=== PATIENT | female | born 1940 | race Caucasian/White ===

== ENCOUNTER 2019-01-30 09:52 | Emergency (ER) | payer OTHER ==
[~2019-01-30] VITALS: Ht 142.2 cm; Wt 63.5 kg
[~2019-01-30 09:52] MED LIST: ADULT LOW DOSE81 M1; ALENDRONATE SOD70 MG; BENAZEPRIL HCL; BUMETANIDE0.5 MG; GLIMEPIRIDE4 MG; JANUMET 50-1,1 UDTAB; SIMVASTATIN40 MG; SYNTHROID100 MCG; VITAMIN D2000 UNI1
[2019-01-30] MEDS ORDERED: LOTREL 5-10 MG1 CAP (10:18)
[2019-01-30] MEDS ORDERED: ZOCOR40 MG (10:18)
== END 2019-01-30 15:19 | disposition home or self-care (01) ==
LOC: ER 09:52
DX: K29.70 Gastritis, unspecified, without bleeding (principal); N39.0 Urinary tract infection, site not specified

== ENCOUNTER 2020-02-26 10:52 | Emergency (ER) | payer OTHER ==
[~2020-02-26] VITALS: Ht 149.9 cm; Wt 62.6 kg
[~2020-02-26 10:52] MED LIST changes: +LOTREL 5-10 MG1 CAP; +ZOCOR40 MG
[2020-02-26] MEDS ORDERED: NEURONTIN600 M1 PO (11:04)
[2020-02-26] MEDS ORDERED: JANUMET XR 1001 EACH PO (11:04)
[2020-02-26] MEDS ORDERED: GLIMEPIRIDE4 MG (11:05)
[2020-02-26] MEDS ORDERED: ZOCOR40 MG PO (11:05)
[2020-02-26] MEDS ORDERED: CRESTOR20 MG PO (11:05)
[2020-02-26] MEDS ORDERED: LOTREL 5-10 MG1 CAP PO (11:05)
[2020-02-26] MEDS ORDERED: SYNTHROID75 MCG (11:05)
[2020-02-26] MEDS ORDERED: BUMETANIDE0.5 MG (11:06)
[2020-02-26] MEDS ORDERED: PREVACID30 MG PO (16:11)
[2020-02-26] MEDS ORDERED: PEPCID AC20 MG PO (16:11)
== END 2020-02-26 16:54 | disposition home or self-care (01) ==
LOC: ER 10:52
DX: K29.70 Gastritis, unspecified, without bleeding (principal); R10.13 Epigastric pain

== ENCOUNTER 2021-07-19 00:24 | Emergency (ER) | payer OTHER ==
[~2021-07-19] VITALS: Ht 149.9 cm; Wt 60.3 kg
[~2021-07-19 00:24] MED LIST changes: +CRESTOR20 MG PO; +JANUMET XR 1001 EACH PO; +LOTREL 5-10 MG1 CAP PO; +NEURONTIN600 M1 PO; +PEPCID AC20 MG PO; +PREVACID30 MG PO; +SYNTHROID75 MCG; +ZOCOR40 MG PO
[2021-07-19] MEDS ORDERED: ACARBOSE25 MG PO (00:39)
[2021-07-19] MEDS ORDERED: NAMENDA5 MG PO (01:47)
[2021-07-19] MEDS ORDERED: BENADRYL25 MG PO (07:30)
[2021-07-19] MEDS ORDERED: CEPHALEXIN500 MG PO (07:30)
== END 2021-07-19 08:03 ==
LOC: ER 00:24
DX: R25.1 Tremor, unspecified (principal); N39.0 Urinary tract infection, site not specified; Z86.39 Personal history of other endocrine, nutritional and metabolic disease; Z86.79 Personal history of other diseases of the circulatory system